=== PATIENT | female | born 1940 | race Caucasian/White ===

== ENCOUNTER 2017-05-01 14:59 | Outpatient (CLI) | payer MEDICARE, OTHER ==
--- NOTE | 2017-05-01 15:41 | Diagnostic Imaging Report ---
LENA AMAYA (CARVER AND CHECKERER SPECIALS) - OP [facility] [address] [id number] Report Submission Date: May 01, 2017 3:28:53 PM CDT Patient Study Name: CASSY TREADWELL Date: May 01, 2017 3:08:06 PM CDT Modality Type: CR Gender: F Description: ABDOMEN : 38 Institution: [facility] Physician: LENA AMAYA (CARVER AND CHECKERER SPECIALS) - OP Examination: Abdomen History: Abdominal discomfort Findings: 2 views obtained of the abdomen. No abnormal dilation of the large or small bowel. Air and stool throughout the large bowel. Calcifications projecting in the region of the left kidney. Osseous structures demonstrate degenerative changes. Impression: No obstruction. Possible left kidney calcification. Electronically signed on May 01, 2017 3:28:53 PM CDT by: Manohar GREER
== END 2017-05-01 15:00 ==
LOC: RAD 14:59
PROVIDERS: ATTEND Nurse Practitioner Family
DX: K59.00 Constipation, unspecified (principal)
CPT/HCPCS: 74000

== ENCOUNTER 2017-05-04 12:12 | Outpatient (CLI) | payer MEDICARE, OTHER ==
--- NOTE | 2017-05-04 14:46 | Diagnostic Imaging Report ---
LENA AMAYA (CONTENT DEVELOPMENT SPECIALIST) - OP [facility] [id number] [facility].[address] [id number] Report Submission Date: May 04, 2017 12:55:35 PM CDT Patient Study Name: CASSY TREADWELL Date: May 04, 2017 12:21:09 PM CDT Modality Type: CR Gender: F Description: ABDOMEN : 38 Institution: [facility] Physician: LENA AMAYA (CONTENT DEVELOPMENT SPECIALIST) - OP Examination: Abdomen History: Abdominal discomfort Comparison exam: 01 May 2017 Findings: 2 views obtained of the abdomen. No abnormal dilation of the large or small bowel. Air and stool throughout the large bowel. Amount of stool within the descending colon has decreased since the prior exam. Possible calcification in the region of the left kidney. Osseous structures demonstrate degenerative changes and osteopenia. Impression: No obstruction. Amount of stool within the descending colon has decreased since the prior exam. Electronically signed on May 04, 2017 12:55:35 PM CDT by: Manohar GREER
== END 2017-05-04 12:13 ==
LOC: RAD 12:12
PROVIDERS: ATTEND Nurse Practitioner Family
DX: K59.00 Constipation, unspecified (principal)
CPT/HCPCS: 74000

== ENCOUNTER 2017-05-09 13:49 | Outpatient (CLI) | payer MEDICARE, OTHER ==
[2017-05-09 14:29] LABS: eGFR (African) > 60; eGFR (Non-African) 39
== END 2017-05-09 13:50 ==
LOC: LAB 13:49
PROVIDERS: ATTEND Nurse Practitioner Family
DX: N28.9 Disorder of kidney and ureter, unspecified (principal)
CPT/HCPCS: 36415; 80048; 85651

== ENCOUNTER 2017-09-17 14:32 | Outpatient (CLI) | payer MEDICARE, OTHER | END 2017-09-17 14:33 | LOC: LAB 14:32 | PROVIDERS: ATTEND Otolaryngology | DX: E21.0 Primary hyperparathyroidism (principal) | CPT/HCPCS: 36415; 82310; 83970 ==

== ENCOUNTER 2017-11-20 12:24 | Outpatient (CLI) | payer MEDICARE, OTHER ==
[2017-11-20 12:50] LABS: MEAN CORPUSCULAR HEMOGLOBIN 29.2 pg (28.0-34.0); MEAN CORPUSCULAR VOLUME 92.1 fl (80.0-100.0)
[2017-11-20 13:29] LABS: EOSINOPHILS % 2 % (0-7); MONOCYTES % 8 % (0-11); SEGMENTED NEUTROPHILS % 61 % (39-79)
[2017-11-20 13:30] LABS: eGFR (African) > 60; eGFR (Non-African) > 60
[2017-11-21 02:31] LABS: PROTEIN mg/dL 13 mg/dL
== END 2017-11-20 12:30 ==
LOC: LAB 12:24
PROVIDERS: ATTEND Internal Medicine
DX: N18.9 Chronic kidney disease, unspecified (principal); I10 Essential (primary) hypertension; N25.0 Renal osteodystrophy
CPT/HCPCS: 36415; 80053; 82306; 82570; 83970; 84100; 84156; 85025